=== PATIENT | female | born 1980 | race African-American/Black ===

== ENCOUNTER 2016-09-11 21:01 | Emergency (ER) | payer MEDICAID ==
[~2016-09-11] VITALS: Ht 160 cm; Wt 142.6 kg
[2016-09-11 21:08] VITALS: BP 141/88
[2016-09-12] MEDS ORDERED: ONDANSETRON ODT 4 MG ONE (00:29)
[2016-09-12] MEDS ORDERED: ONDANSETRON ODT 4 MG PO ONE (00:30)
== END 2016-09-11 23:26 | disposition left against medical advice (07) ==
LOC: ED 23:16
DX: S80.02XA Contusion of left knee, initial encounter (principal); M25.521 Pain in right elbow; E11.9 Type 2 diabetes mellitus without complications; X58.XXXA Exposure to other specified factors, initial encounter; Y93.89 Activity, other specified; Y92.89 Other specified places as the place of occurrence of the external cause; Y99.8 Other external cause status; Z87.440 Personal history of urinary (tract) infections; Z90.49 Acquired absence of other specified parts of digestive tract

== ENCOUNTER 2016-12-02 14:55 | Emergency (ER) | payer MEDICAID ==
[~2016-12-02] VITALS: Ht 165.1 cm; Wt 131.5 kg
[2016-12-02 15:18] VITALS: BP 133/89
[2016-12-02] MEDS ORDERED: ALBUTEROL/IPRATROPIUM 2.5MG/0.5MG, 3 ML NPPB ONE (15:30)
[2016-12-02] MEDS ORDERED: ALBUTEROL SULFATE 2.5 MG/3 ML ONE (15:48)
[2016-12-02] MEDS ORDERED: ALBUTEROL/IPRATROPIUM 2.5MG/0.5MG, 3 ML ONE (15:50)
== END 2016-12-02 16:10 | disposition home or self-care (01) ==
LOC: ED 16:04
DX: J45.31 Mild persistent asthma with (acute) exacerbation (principal); J45.21 Mild intermittent asthma with (acute) exacerbation; J20.8 Acute bronchitis due to other specified organisms; E11.9 Type 2 diabetes mellitus without complications
CPT/HCPCS: 71020; 94640; 99284; J7512; J7620

== ENCOUNTER 2018-06-10 09:41 | Emergency (ER) | payer MEDICAID ==
[2018-06-10] MEDS ORDERED: ALBUTEROL SULFATE 2.5 MG/3 ML ONE (10:30)
[2018-06-10] MEDS ORDERED: IBUPROFEN 200 MG TABLET PO ONE (10:30)
[2018-06-10] MEDS ORDERED: DEXAMETHASONE 4 MG TABLET PO ONE (10:30)
[2018-06-10] MEDS ORDERED: ALBUTEROL SULFATE 2.5 MG/3 ML NPPB ONE (10:30)
[2018-06-10] MEDS ORDERED: DEXAMETHASONE 4 MG TABLET ONE (10:33)
[2018-06-10] MEDS ORDERED: IBUPROFEN 600 MG TABLET ONE (10:33)
[2018-06-10 10:47] LABS: RAPID INFLUENZA A Negative (Negative); RAPID INFLUENZA B Negative (Negative)
[2018-06-10 11:28] VITALS: BP 110/47
== END 2018-06-10 11:54 | disposition home or self-care (01) ==
LOC: ED 11:19
DX: J45.31 Mild persistent asthma with (acute) exacerbation (principal); Z87.891 Personal history of nicotine dependence
CPT/HCPCS: 71046; 87400; 93005; 94640; 99284; J7613

== ENCOUNTER 2019-05-16 19:34 | Emergency (ER) | payer MEDICAID ==
[~2019-05-16] VITALS: Ht 165.1 cm; Wt 138.8 kg
[2019-05-16 19:55] VITALS: BP 131/89
== END 2019-05-16 22:06 | disposition home or self-care (01) ==
LOC: ED 21:50
DX: J06.9 Acute upper respiratory infection, unspecified (principal); F17.200 Nicotine dependence, unspecified, uncomplicated; E11.9 Type 2 diabetes mellitus without complications; J45.909 Unspecified asthma, uncomplicated
CPT/HCPCS: 71046; 99283